=== PATIENT | female | born 1960 | race Caucasian/White ===

== ENCOUNTER 2018-08-10 15:31 | Inpatient (IN) ==
[2018-08-10] MEDS ORDERED: 0.9 % Sodium Chloride 1,000 ML IVC ONE ×2 (17:22→18:16)
[2018-08-10] MEDS ORDERED: Ondansetron 4 MG/2 ML VIAL IVP ONE ×2 (17:22→19:54)
--- NOTE | 2018-08-10 17:24 | Emergency Department Note ---
Disposition Clinical Impression: DKA (diabetic ketoacidoses) Qualifiers: Diabetes mellitus type: type 2 Diabetes mellitus complication detail: without coma Qualified Code(s): E11.10 - Type 2 diabetes mellitus with ketoacidosis without coma Disposition: Admitted As Inpatient Condition: Good Time of Disposition: 18:46 General Adult HPI - General Chief complaint: ED Nausea/Vomiting/Diarrhea Stated complaint: vomiting/diarrhea Time Seen by Provider: 08/10/18 16:52 Source: patient, family Limitations: no limitations Nursing Notes Reviewed: Yes Vital Signs Reviewed: Yes - History of Present Illness HPI Narrative: Patient with 2 days of nausea vomiting. States she ate at a [place] restaurant last night and became very ill afterwards. However there are several people ate the same thing is her with no illnesses. Is complaining of a gross abdominal pain. Has had a history of cholecystectomy. As well as hysterectomy with one ovary left. Patient is from [place] and is on here on vacation. She denies any chest pain or shortness of breath. She does state that she has a hard time catching her were to this time. No neuro deficit s noted. No aphasia noted. States that she feels like this when her glucoses either too high or too low. Is on several different controller medication for her elevated blood sugar. Pain Scale: 7 - Related Data Allergies Allergy/AdvReac Type Severity Reaction Status Date / Time codeine AdvReac Nausea Verified 08/10/18 15:34 All systems ED: reviewed and negative except as stated. Review of Systems: As Per HPI Constitutional: Denies: fever Cardiovascular: Denies: chest pain, syncope Respiratory: Denies: cough, dyspnea Gastrointestinal: Reports: abdominal pain, nausea, vomiting, diarrhea. Denies: hematemesis, melena, hematochezia Past Medical History - Past Medical History Attestation: Yes The following information was validated with the patient. Source: patient Medical history: Reports: diabetes, hypertension, migraine Psychiatric history: Reports: no psych history - Social History Smoking Status: Never smoker Smokeless Tobacco Status: No Alcohol use: Reports: occasionally Drug use: Reports: none Physical Exam - General Limitations: no limitations General appearance: alert, in no apparent distress - Head Head exam: atraumatic, normocephalic, normal inspection - Eye Eye exam: Present: normal appearance, PERRL, EOMI - ENT ENT exam: normal exam, normal oropharynx, mucous membranes moist - Neck Neck exam: Present: normal inspection, full ROM, trachea midline - Chest Chest inspection: Present: normal inspection, symmetric chest wall rise. Absent: tenderness - Respiratory Respiratory exam: Present: normal lung sounds bilaterally. Absent: respiratory distress, accessory muscle use - Cardiovascular Cardiovascular exam: Present: regular rate, normal rhythm, normal heart sounds - Abdominal Exam Abdominal exam: Present: soft, tenderness (Right lower quadrant as well as periumbilical. Some mild tenderness to right upper quadrant as well.). Absent: distention, guarding, rebound, rigidity - Neurological Exam Neurological exam: Present: alert, oriented X3 - Psychiatric Psychiatric exam: Present: normal affect, normal mood - Skin Skin exam: Present: warm, dry, intact, normal color. Absent: cyanosis, diaphoresis Course Course Narrative: Patient with some diffuse abdominal pain on exam. Abdomen is nondistended. She is not guarding. Does have a history of cholecystectomy as well as hysterectomy. She is also diabetic. Is on several different controller medications for her elevated glucose. She states that she does have some burning on urination. Mentating properly. States that she feels little clouded and that she is having trouble getting words out. However she is making sense alert and oriented 3 with no neuro deficits noted. No history of stroke. Lung sounds are clear heart tones are normal. We did get a basic lab workup which initially showed an anion gap of 16. Beta hydroxybutyric acid is also elevated. She is spilling ketones in her urine. We did order IV fluids as well as IV insulin. We will admit patient to the hospital for DKA. She expresses understanding states she has never been in DKA before. - Consultations Consultation #1: Dr Vyas accepted Pt in stable condition. Time: 19:09 Vital Signs Temperature 97.4 F L 08/10/18 15:33 Pulse Rate 113 08/10/18 15:33 Respiratory Rate 16 08/10/18 15:33 Blood Pressure 102/70 08/10/18 15:33 O2 Sat by Pulse Oximetry 97 08/10/18 15:33 Temperature 97.4 F L 08/10/18 15:33 Pulse Rate 104 08/10/18 17:24 Respiratory Rate 16 08/10/18 17:24 Blood Pressure 111/73 08/10/18 17:24 O2 Sat by Pulse Oximetry 97 08/10/18 17:24 Oxygen Delivery Oxygen Delivery Room Air Medical Decision Making - Medical Records Medical records reviewed: Yes I reviewed the patient's medical records. - Lab Data Lab results reviewed: Yes I reviewed the patient's lab results. Result diagrams: 08/10/18 17:00 08/10/18 21:47 Lab Results 08/10/18 08/10/18 08/10/18 Range/Units 17:00 17:00 17:00 WBC 13.9 H (4.3-11.1) K/mcL RBC 6.13 H (3.82-4.97) M/mcL Hgb 17.3 H (11.5-15.4) g/dL Hct 53.0 H (35.3-44.9) % MCV 86.5 (83.0-100.0) fL MCH 28.2 (28.0-33.3) pg MCHC 32.6 (31.6-35.5) g/dL RDW 12.8 (11.5-14.5) % Plt Count 309 (140-400) K/mcL MPV 11.0 (9.4-12.4) fL Immature Gran % 0.4 (0-4) % Seg Neutrophils % 92.0 % Lymphocytes % 2.5 % Monocytes % 4.4 % Eosinophils % 0.3 % Basophils % 0.4 % Neutrophils # 12.8 H (1.6-8.9) K/mcL Lymphocytes # 0.4 L (0.6-4.6) K/mcL Monocytes # 0.6 (0.0-1.3) K/mcL Eosinophils # 0.0 (0.0-0.6) K/mcL Basophils # 0.1 (0.0-0.2) K/mcL VBG pH (7.32-7.42) pH Units VBG pCO2 (41-51) mmHg VBG pO2 (25-50) mmHg VBG HCO3 (21-27) mEq/L Sodium 138 (136-145) mEq/L Potassium 4.0 (3.5-5.1) mEq/L Chloride 99 (98-107) mEq/L Carbon Dioxide 23 (23-29) mEq/L BUN 24 H (6-20) mg/dL Creatinine 1.16 (0.60-1.20) mg/dL Est GFR ( Amer) 58 L (> 60) Est GFR (Non-Af Amer) 48 L (> 60) BUN/Creatinine Ratio 21 (6-26) Glucose 297 H (70-105) mg/dL Calculated Osmolality 301 H (280-300) Calcium 9.2 (8.6-10.3) mg/dL Total Bilirubin 0.7 (0.3-1.0) mg/dL Direct Bilirubin 0.1 (0.0-0.2) mg/dL Indirect Bilirubin 0.6 (0.0-1.2) mg/dL AST 13 (13-39) Units/L ALT 17 (7-52) Units/L Alkaline Phosphatase 61 (34-104) Units/L Serum Total Protein 7.7 (6.4-8.9) g/dL Albumin 4.7 (3.5-5.7) g/dL Globulin 3.0 (2.4-3.5) g/dL Albumin/Globulin Ratio 1.6 (1.1-2.2) Lipase 10 L (11-82) Units/L Beta-Hydroxybutyric Acd > 2.00 H (0.02-0.27) mmol/L Urine Color (Yellow) Urine Clarity (Clear) Urine pH (5.0-8.0) pH Units Ur Specific [place] (1.010-1.025) Urine Protein (Neg-Trace) mg/dL Urine Glucose (UA) (Normal) mg/dL Urine Ketones (Negative) mg/dL Urine Blood (Negative) Urine Nitrite (Negative) Urine Bilirubin (Negative) Urine Urobilinogen (Normal) mg/dL Ur Leukocyte Esterase (Negative) Ur Culture Indicated? (NO) 08/10/18 08/10/18 Range/Units 17:37 18:04 WBC (4.3-11.1) K/mcL RBC (3.82-4.97) M/mcL Hgb (11.5-15.4) g/dL Hct (35.3-44.9) % MCV (83.0-100.0) fL MCH (28.0-33.3) pg MCHC (31.6-35.5) g/dL RDW (11.5-14.5) % Plt Count (140-400) K/mcL MPV (9.4-12.4) fL Immature Gran % (0-4) % Seg Neutrophils % % Lymphocytes % % Monocytes % % Eosinophils % % Basophils % % Neutrophils # (1.6-8.9) K/mcL Lymphocytes # (0.6-4.6) K/mcL Monocytes # (0.0-1.3) K/mcL Eosinophils # (0.0-0.6) K/mcL Basophils # (0.0-0.2) K/mcL VBG pH 7.29 L (7.32-7.42) pH Units VBG pCO2 53 H (41-51) mmHg VBG pO2 26 (25-50) mmHg VBG HCO3 26 (21-27) mEq/L Sodium (136-145) mEq/L Potassium (3.5-5.1) mEq/L Chloride (98-107) mEq/L Carbon Dioxide (23-29) mEq/L BUN (6-20) mg/dL Creatinine (0.60-1.20) mg/dL Est GFR ( Amer) (> 60) Est GFR (Non-Af Amer) (> 60) BUN/Creatinine Ratio (6-26) Glucose (70-105) mg/dL Calculated Osmolality (280-300) Calcium (8.6-10.3) mg/dL Total Bilirubin (0.3-1.0) mg/dL Direct Bilirubin (0.0-0.2) mg/dL Indirect Bilirubin (0.0-1.2) mg/dL AST (13-39) Units/L ALT (7-52) Units/L Alkaline Phosphatase (34-104) Units/L Serum Total Protein (6.4-8.9) g/dL Albumin (3.5-5.7) g/dL Globulin (2.4-3.5) g/dL Albumin/Globulin Ratio (1.1-2.2) Lipase (11-82) Units/L Beta-Hydroxybutyric Acd (0.02-0.27) mmol/L Urine Color Yellow (Yellow) Urine Clarity Clear (Clear) Urine pH 5.5 (5.0-8.0) pH Units Ur Specific [place] > 1.030 H (1.010-1.025) Urine Protein Negative (Neg-Trace) mg/dL Urine Glucose (UA) >=1000 H (Normal) mg/dL Urine Ketones 40 H (Negative) mg/dL Urine Blood Negative (Negative) Urine Nitrite Negative (Negative) Urine Bilirubin Small H (Negative) Urine Urobilinogen Normal (Normal) mg/dL Ur Leukocyte Esterase Negative (Negative) Ur Culture Indicated? NO (NO) - Radiology Data Radiology results reviewed: Yes I reviewed the patient's radiology results. Abdomen/Pelvis CT 08/10/18 17:21 IMPRESSION: No acute inflammatory process in the abdomen or pelvis. A 2.4 cm fluid attenuation right adnexal cyst. Pelvic ultrasound is recommended for further evaluation on a nonemergent basis. D/ /10/2018 18:07:29 Wm Lei MD / flavia Interpreting Provider: Wm Lei MD Attestation Statement - Attestation Attestation: I, Gio Mayers, examined this patient and my medical decision-making was reviewed with the [employer] CYLINDER INSPECTOR/PA/Advanced Practice Nurse/Resident Physician. I agree with the documented findings, disposition and treatment plan as described except to the extent set forth below. 58-year-old female presents emergency Department with concerns of nausea, vomiting, diarrhea. Patient states she ate [place] food last night and then during the night had acute onset of nausea, vomiting, diarrhea. Denies hematochezia, hematemesis, melena. Never had any symptoms like this in the past. Multiple people in that same restaurant without becoming sick. Patient has a history of diabetes, takes trulicity, invokana, and glymeperide. Patient denies missing any of her doses of her medication. She also has not checked her fingerstick blood sugar over the past week that she has been visiting her family. Patient states she feels globally weak but does not have focal neurologic deficit. Patient denies fever. Denies cough, recent trauma. Patient has elevated blood glucose with anion gap of 16 on the BMP. She has elevated beta hydroxybutyric acid. Patient will be treated as DKA and admitted to the hospitalist for further care and evaluation.
[2018-08-10 17:30] LABS: Calcium 9.2 mg/dL (8.6-10.3)
[2018-08-10 17:31] LABS: Basophils # 0.1 K/mcL (0.0-0.2); Basophils % 0.4 %; Eosinophils % 0.3 %; Hemoglobin 17.3 g/dL (11.5-15.4); Immature Granulocytes % 0.4 % (0-4); Lymphocytes # 0.4 K/mcL (0.6-4.6); Lymphocytes % 2.5 %; Mean Corpuscular HGB Conc 32.6 g/dL (31.6-35.5); Mean Corpuscular Hemoglobin 28.2 pg (28.0-33.3); Mean Corpuscular Volume 86.5 fL (83.0-100.0); Monocytes # 0.6 K/mcL (0.0-1.3); Monocytes % 4.4 %; Neutrophils # 12.8 K/mcL (1.6-8.9); Platelet Count 309 K/mcL (140-400); Red Blood Count 6.13 M/mcL (3.82-4.97); Red Cell Distribution Width 12.8 % (11.5-14.5)
[2018-08-10 17:53] LABS: Bilirubin,Urine Small (Negative); Blood,Urine Negative (Negative); Clarity,Urine Clear (Clear); Color,Urine Yellow (Yellow); Glucose,Urine (UA) >=1000 mg/dL (Normal); Ketones,Urine 40 mg/dL (Negative); Leukocyte Esterase,Urine Negative (Negative); Nitrite,Urine Negative (Negative); PH,Urine 5.5 pH Units (5.0-8.0); Protein,Urine Negative (Neg-Trace); Specific Gravity,Urine > 1.030 (1.010-1.025); Urobilinogen,Urine Normal (Normal)
[2018-08-10 18:01] LABS: Albumin 4.7 g/dL (3.5-5.7); Albumin/Globulin Ratio 1.6 (1.1-2.2); Bilirubin,Direct 0.1 mg/dL (0.0-0.2); Bilirubin,Indirect 0.6 mg/dL (0.0-1.2); Bilirubin,Total 0.7 mg/dL (0.3-1.0); Total Protein 7.7 g/dL (6.4-8.9)
[2018-08-10 18:07] LABS: VBG HCO3 26 mEq/L (21-27); VBG PCO2 53 mmHg (41-51); VBG PH 7.29 pH Units (7.32-7.42); VBG PO2 26 mmHg (25-50)
[2018-08-10] MEDS ORDERED: Insulin Human Regular 10 UNIT in 0.9 % Sodium Chloride 10 ML IV ONE (18:15)
[2018-08-10] MEDS ORDERED: Acetaminophen 325 MG TABLET PO PRN (21:36)
[2018-08-10] MEDS ORDERED: D5% in 0.45% NACL w KCl 20 MEQ/1,000 ML MLS IVC PRN (21:36)
[2018-08-10] MEDS ORDERED: Ondansetron 4 MG/2 ML VIAL IVP PRN (21:36)
[2018-08-10] MEDS ORDERED: *HR* Dextrose 50 % in Water (Syg) 50 ML SYRINGE IVP PRN ×2 (21:36→22:42)
[2018-08-10] MEDS ORDERED: Naloxone 0.4 MG/ML INJ IVP PRN (21:36)
[2018-08-10] MEDS ORDERED: Insulin Human Regular 100 UNIT in 0.9 % Sodium Chloride 100 ML IVC SCH (21:45)
[2018-08-10 21:59] LABS: VBG HCO3 22 mEq/L (21-27); VBG PCO2 38 mmHg (41-51); VBG PH 7.36 pH Units (7.32-7.42); VBG PO2 90 mmHg (25-50)
[2018-08-10 22:15] LABS: Magnesium 1.9 mg/dL (1.6-2.6); Phosphorous 2.8 mg/dL (2.7-4.5)
[2018-08-10 22:16] LABS: BUN/Creatinine Ratio 25 (6-26); Blood Urea Nitrogen 21 mg/dL (6-20); Calcium 8.3 mg/dL (8.6-10.3); Carbon Dioxide 21 mEq/L (23-29); Chloride 104 mEq/L (98-107); Glucose 169 mg/dL (70-105); Osmolality,Calculated 291 (280-300); Potassium 3.9 mEq/L (3.5-5.1); Sodium 137 mEq/L (136-145); eGFR For Non-African Americans > 60 (> 60)
[2018-08-10] MEDS ORDERED: D5% in Water 1,000 ML IVC PRN (22:42)
[2018-08-10] MEDS ORDERED: *HR* FentaNYL (PF) 100 MCG/2 ML VIAL IVP PRN (22:42)
[2018-08-10] MEDS ORDERED: Dextrose Gel 15 GM/37.5 ML TUBE PO PRN ×2 (22:42)
[2018-08-10] MEDS ORDERED: Insulin LISPRO 300 UNITS/3 ML VIAL SQ SCH (22:45)
[2018-08-10] MEDS ORDERED: Insulin DETEMIR 100 UNIT/ML X5UNITS SQ SCH (22:45)
--- NOTE | 2018-08-10 22:56 | Internal Med History&Physical ---
Date of Encounter: 08/10/18 Time of Encounter: 21:10 Internal Medicine - H&P: HPI Chief complaint: N/V/D, abdominal pain Admitted From: Emergency Dept Plans for Post Hospital Care: Home History of present illness: Ms. Longoria is a 58 year old female who presents to the ER today with sudden onset abdominal pain, nausea, vomiting, diarrhea, and limited oral intake. Symptoms started about 24 hours ago. She thought symptoms are from "bad" food she ate from local restaurant. However, none of her family members have similar symptoms. They all ate at the same restaurant. She went to a local urgent care and referred to the ER for concerns of diabetic complications. She came to ER where she was found to have evidence of DKA. She received IV fluids and one- time dose of IV insulin. She was then admitted to hospitalist service. Upon my assessment of the patient, patient states she feels better but still has cramping abdominal pain off and on. She still feels dehydrated. She denies any fevers, chills, or night sweats. She denies any cough, chest pain, shortness of breath. I reviewed her labs and noted her anion gap of 16, elevated glucose, and positive ketones. She also had pH of 7.29 on VBG. Unfortunately, she had not had any serial glucose checks since her initial laboratory analysis. I then ordered stat glucose check which was 141. I ordered repeat stat labs which revealed normal anion gap now, normal pH, and improved glucose control. I will therefore keep her on IV fluid hydration, subcutaneous insulin, and monitor closely. It appears that her DKA is resolving now. Nonetheless, she still symptomatic from her GI symptomatology, which may be related to her DKA, GI virus, and/or possible food poisoning. Of note, her medication list is not updated and not available. She takes oral diabetic agents and Trulicity for diabetes control. Past Med Surg Social Fam HX - Past Medical History Attestation: Yes The following information was validated with the patient. Source: patient, other (ER records) Medical history: diabetes, hypertension, migraine Psychiatric history: no psych history - Past Surgical History Surgical History: cholecystectomy, BARTOLO/BSO (unilateral oopherectomy) - Social History Smoking Status: Never smoker Smokeless Tobacco Status: No Alcohol use: occasionally Drug use: none Current living situation: Home, With Family Activity Level: Independent ambulation Recent Out of Country Travel Within the Last 8 Weeks: No Additional social history: lives in [place], [place]; visiting family in [place] presently - Family History Mother Living Status: Still Living Hx Family GI Disorders: No Hx Family Endocrine Disorder: No Internal Medicine - H&P: Meds Allergy/AdvReac Type Severity Reaction Status Date / Time codeine AdvReac Nausea Verified 08/10/18 15:34 - Constitutional Constitutional: no chills, no fever(s), no night sweats - EENT Eyes: no blurry vision, no change in vision Ears: no ear pain, no tinnitus Nose, mouth and throat: no nasal congestion, no sinus pressure, no sore throat - Cardiovascular Cardiovascular ROS IM: no chest pain, no diaphoresis, no dyspnea, no dyspnea on exertion - Respiratory Respiratory: no cough, no chest congestion, no excessive phlegm production, no pain with cough - Gastrointestinal Gastrointestinal: abdominal pain (crampy), cramping, diarrhea, heartburn, nausea, vomiting, no hematemesis, no hematochezia, no loose stools, no melena - Genitourinary Genitourinary: no dysuria, no flank pain, no hematuria - Musculoskeletal Musculoskeletal ROS IM: no arthralgias, no back pain - Integumentary Integumentary IM: no rash, no jaundice - Neurological Neurological ROS: no dizziness, no focal weakness, no frequent falls, no headache(s) - Psychiatric Psychiatric: no anxiety, no depression - Endocrine Endocrine IM: no cold intolerance, no heat intolerance, no polydipsia, no polyuria - Allergic/Immunologic Allergic/Immunologic: GI upset with certain foods, no wheezing - Constitutional Vitals: Temp Pulse Resp BP Pulse Ox 97.4 F L 98 16 113/64 97 08/10/18 15:33 08/10/18 22:20 08/10/18 20:21 08/10/18 22:20 08/10/18 22:20 General appearance: Present: cooperative, mild distress, A&O X 3, pleasant, answers questions appropriately Exam: mildly dehydrated; mild nausea - Head Head exam: Present: atraumatic, normal inspection - Eye Eye exam: Present: EOMI, PERRL. Absent: scleral icterus Pupils: Present: normal accommodation - ENT ENT exam: Present: mucous membranes dry, normal exam, normal oropharynx - Neck Neck exam general surgery: Present: full ROM, supple, trachea midline. Absent: lymphadenopathy, tenderness, nuchal rigidity, thyromegaly - Respiratory Respiratory exam: Present: CTAB. Absent: chest wall tenderness, rales, respiratory distress, rhonchi, wheezes - Cardiovascular Cardiovascular exam: Present: RRR, +S1, +S2. Absent: diastolic murmur, systolic murmur - GI/Abdominal GI/Abdominal exam: Present: normal bowel sounds, tenderness (mild, diffuse, crampy pain), no peritoneal signs. Absent: guarding, hepatomegaly, mass, re bound, splenomegaly - Extremities Exam Extremities exam: Present: full ROM, normal capillary refill, warm, radial pulses palpable and symmetrical. Absent: calf tenderness, joint swelling, pedal edema, tenderness - Back Exam Back exam: Absent: CVA tenderness (L), CVA tenderness (R) - Neurological Exam Neurological exam: Present: alert, CN II-XII intact, oriented X3, no focal defic its, strengths equal and symetr throughout - Psychiatric Psychiatric exam: Present: normal affect, normal mood - Skin Skin exam: Present: dry, intact, warm Internal Med - H&P Results - Labs CBC & Chem 7: 08/10/18 17:00 08/10/18 21:47 Labs: Short CBC 08/10/18 Range/Units 17:00 WBC 13.9 H (4.3-11.1) K/mcL Hgb 17.3 H (11.5-15.4) g/dL Hct 53.0 H (35.3-44.9) % Plt Count 309 (140-400) K/mcL Neutrophils # 12.8 H (1.6-8.9) K/mcL BMP 08/10/18 08/10/18 17:00 21:47 Sodium 138 137 Potassium 4.0 3.9 Chloride 99 104 Carbon Dioxide 23 21 L BUN 24 H 21 H Creatinine 1.16 0.85 Glucose 297 H 169 H Calcium 9.2 8.3 L Liver Function 08/10/18 Range/Units 17:00 Total Bilirubin 0.7 (0.3-1.0) mg/dL Direct Bilirubin 0.1 (0.0-0.2) mg/dL AST 13 (13-39) Units/L ALT 17 (7-52) Units/L Alkaline Phosphatase 61 (34-104) Units/L Albumin 4.7 (3.5-5.7) g/dL Urine 08/10/18 Range/Units 17:37 Urine Color Yellow (Yellow) Urine Clarity Clear (Clear) Urine pH 5.5 (5.0-8.0) pH Units Ur Specific [place] > 1.030 H (1.010-1.025) Urine Protein Negative (Neg-Trace) mg/dL Urine Glucose (UA) >=1000 H (Normal) mg/dL - ABG Interpretation ABG results: 08/10/18 08/10/18 18:04 21:56 VBG pH 7.29 L 7.36 VBG pCO2 53 H 38 L VBG pO2 26 90 H VBG HCO3 26 22 - Impressions ITS Impressions Abdomen/Pelvis CT 08/10/18 17:21 IMPRESSION: No acute inflammatory process in the abdomen or pelvis. A 2.4 cm fluid attenuation right adnexal cyst. Pelvic ultrasound is recommended for further evaluation on a nonemergent basis. D/ : / 08/10/2018 18:07:29 Wm Lei MD / flavia Interpreting Provider: Wm Lei MD - Diagnostic Studies CT scan - abdomen Status: image reviewed by me (negative) - Assessment and Plan (1) DKA (diabetic ketoacidoses) Current Visit: Yes Status: Acute Assessment and plan: 1. Patient received IVF and IV insulin in ER. 2. I ordered STAT labs which revealed a normal anion gap, normal pH. 3. Will continue IVF and start SQ insulin now as DKA resolved. 4. Will monitor glucose and repeat labs. 5. Advance diet as tolerated after clear liquid diet. Qualifiers: Diabetes mellitus type: type 2 Diabetes mellitus complication detail: without coma Qualified Code(s): E11.10 - Type 2 diabetes mellitus with ketoacidosis without coma (2) Abdominal pain Current Visit: Yes Status: Acute Assessment and plan: 1. Non-specific. 2. CT abdomen negative. 3. Monitor clinically and treat symptoms. 4. Exam is benign and does not suggest acute abdomen. Qualifiers: Abdominal location: generalized Qualified Code(s): R10.84 - Generalized abdominal pain (3) DVT prophylaxis Current Visit: Yes Status: Acute Assessment and plan: 1. Heparin SQ.
[2018-08-10] MEDS: 0.9 % Sodium Chloride w KCl 20 MEQ/1,000 ML MLS IVC SCH (23:20)
[2018-08-11] MEDS: *HR* Heparin 5,000 UNIT/ML VIAL SQ SCH ×2 (04:08→05:47)
[2018-08-11] MEDS: 0.9 % Sodium Chloride w KCl 20 MEQ/1,000 ML MLS IVC SCH (04:35)
[2018-08-11] MEDS ORDERED: Pantoprazole 40 MG VIAL IVP SCH (06:00)
[2018-08-11 07:20] LABS: Basophils % 0.3 %; Eosinophils # 0.1 K/mcL (0.0-0.6); Eosinophils % 0.8 %; Hematocrit 39.5 % (35.3-44.9); Immature Granulocytes % 0.3 % (0-4); Lymphocytes # 0.8 K/mcL (0.6-4.6); Mean Corpuscular HGB Conc 33.9 g/dL (31.6-35.5); Mean Corpuscular Hemoglobin 28.5 pg (28.0-33.3); Mean Corpuscular Volume 83.9 fL (83.0-100.0); Mean Platelet Volume 10.3 fL (9.4-12.4); Monocytes # 0.6 K/mcL (0.0-1.3); Monocytes % 8.2 %; Neutrophils # 6.3 K/mcL (1.6-8.9); Platelet Count 205 K/mcL (140-400); Red Blood Count 4.71 M/mcL (3.82-4.97); Segmented Neutrophils % 80.4 %
[2018-08-11] MEDS ORDERED: Insulin LISPRO 300 UNITS/3 ML VIAL SQ SCH (07:30)
[2018-08-11 07:34] LABS: Alanine Aminotransferase 11 Units/L (7-52); Albumin 3.5 g/dL (3.5-5.7); Albumin/Globulin Ratio 1.7 (1.1-2.2); Alkaline Phosphatase 39 Units/L (34-104); Aspartate Amino Transferase 10 Units/L (13-39); BUN/Creatinine Ratio 25 (6-26); Bilirubin,Total 0.5 mg/dL (0.3-1.0); Blood Urea Nitrogen 17 mg/dL (6-20); Calcium 7.7 mg/dL (8.6-10.3); Carbon Dioxide 23 mEq/L (23-29); Chloride 107 mEq/L (98-107); Globulin 2.1 g/dL (2.4-3.5); Glucose 151 mg/dL (70-105); Hemoglobin 13.4 g/dL (11.5-15.4); Osmolality,Calculated 288 (280-300); Potassium 3.9 mEq/L (3.5-5.1); Sodium 137 mEq/L (136-145); Total Protein 5.6 g/dL (6.4-8.9); eGFR For Non-African Americans > 60 (> 60)
[2018-08-11 07:59] VITALS: BP 141/84
--- NOTE | 2018-08-11 08:24 | Discharge Summary ---
<Tamiko Lemon M - Last Filed: 08/11/18 18:34> - NOTES TO OUTPATIENT PROVIDER Notes to Outpatient Provider: follow up on incidental adnexal mass Orders not resulted at time of discharge: Pending orders 08/10/18 21:36 ECG 12 lead ECG [ECG] Routine 08/11/18 07:01 Hgb A1C AM 0400 Date of Encounter: 08/11/18 Time of Encounter: 08:24 - Discharge Diagnosis (1) Hyperglycemia Priority: Primary Status: Acute (2) Gastroenteritis Priority: Secondary Status: Acute (3) Abdominal pain Priority: Secondary Status: Acute Qualifiers: Abdominal location: epigastric Qualified Code(s): R10.13 - Epigastric pain (4) Adnexal mass Priority: Secondary Status: Acute (5) HTN (hypertension) Priority: Secondary Status: Chronic Qualifiers: Hypertension type: essential hypertension Qualified Code(s): I10 - Essential (primary) hypertension Hospital course: Ms. Longoria is a 58 year old female history of DM type 2 non insulin dependent presented to ED on 08-10-18 after two day of vomiting and diarrhea. Onset a few hours after eating at restaurant . She if on vacation and called her PCP in [place] who instructed her to present to ED. On presentation tachycardiac 113 and mild hypotension 102/70 afebrile . Lab work showed hyperglycemia with BG 305 , mild hyperosm 301 and beta hydroxybuteratic above 2. VBG with out acidosis at pH 7.29 and no gap with Na 138 , K4 and CO2 23. UA with high glucose and ketones . CT ABD no acute inflammatory process but incidental findint of 2.4 cm rights adeneal cysts already knwon to patient with follow up for planned oophertectomy. She received 3 L of IVF and insulin drip with quick correction of hyperglycemia to less than 220 with in 4 hrs. Once admitted potassium replaced at 3.9 to keep above 4. H A1C of 8.3. Essential normal CBC with hemoconcention from dehyration resolved on repeat CBC. Her symptoms resolved to weakness and mild headaches similar to her baseline. She was able to tolerate PO with 5 u SSI. Patient wished to leave to make flight back home and was deemed clinically stable. Discharge on day after admission with vitals stable and physical exam normal expect for mild epigastric abdominal tenderness and lower rib strain from retching . She restarted her home medications of glimepiride, invokana and trulicity . Discharge discussed with: patient, nurse - Time Spent with Patient Total time spent providing and/or coordinating discharge services: - Discharge Medications Prescriptions: New Ondansetron ODT [Zofran ODT] 4 mg SL Q4HR PRN #15 tab.rapdis PRN Reason: Nausea And Vomiting Continue RX: Aspirin [Lo-Dose Aspirin EC] 81 mg PO DAILY RX: Estrogen,Alana/Me-Testosterone [Covaryx H.s. Tablet] 1 tab PO DAILY RX: Cholecalciferol (D-3) [Vitamin D] 1,000 unit PO DAILY RX: Dulaglutide [Trulicity] 1.5 mg SQ MO RX: Pitavastatin Calcium [Livalo] 4 mg PO DAILY RX: Lisinopril-HCTZ 20-12.5 [Prinzide 20-12.5] 2 tab PO DAILY RX: Bupropion HCl [Wellbutrin Xl] 300 mg PO DAILY RX: Glimepiride [Amaryl] 2 mg PO DAILY RX: Canagliflozin [Invokana] 300 mg PO DAILY RX: Magnesium l-Lactate [Mag-Tab Sr] 84 mg PO DAILY Home Medications: RX: Aspirin [Lo-Dose Aspirin EC] 81 mg PO DAILY 08/10/18 [History] RX: Bupropion HCl [Wellbutrin Xl] 300 mg PO DAILY 08/10/18 [History] RX: Canagliflozin [Invokana] 300 mg PO DAILY 08/10/18 [History] RX: Cholecalciferol (D-3) [Vitamin D] 1,000 unit PO DAILY 08/10/18 [History] RX: Dulaglutide [Trulicity] 1.5 mg SQ MO 08/10/18 [History] RX: Estrogen,Alana/Me-Testosterone [Covaryx H.s. Tablet] 1 tab PO DAILY 08/10/18 [History] RX: Glimepiride [Amaryl] 2 mg PO DAILY 08/10/18 [History] RX: Lisinopril-HCTZ 20-12.5 [Prinzide 20-12.5] 2 tab PO DAILY 08/10/18 [History] RX: Magnesium l-Lactate [Mag-Tab Sr] 84 mg PO DAILY 08/10/18 [History] RX: Pitavastatin Calcium [Livalo] 4 mg PO DAILY 08/10/18 [History] Ondansetron ODT [Zofran ODT] 4 mg SL Q4HR PRN #15 tab.kadeemdis 08/11/18 [Rx] Allergies/Adverse Reactions: Allergy/AdvReac Type Severity Reaction Status Date / Time codeine AdvReac Nausea Verified 08/10/18 15:34 Date of admission: 08/10/18 23:02 Primary care physician: PCP NONE Discharging clinician: Tamiko Lemon Anticipated date of discharge: 08/11/18 - Constitutional Vitals: Temp Pulse Resp BP Pulse Ox 98.7 F 86 16 141/84 97 08/11/18 07:56 08/11/18 07:56 08/11/18 07:56 08/11/18 07:56 08/11/18 07:56 General appearance: Present: cooperative, mild distress, A&O X 3, pleasant, answers questions appropriately Exam: patient laying in bed requesting top leave - Head Head exam: Present: atraumatic, normal inspection, normocephalic - Eye Eye exam: Present: EOMI, PERRL - ENT ENT exam: Present: mucous membranes moist, normal external ear exam, normal oropharynx - Respiratory Respiratory exam: Present: CTAB. Absent: respiratory distress, wheezes - Cardiovascular Cardiovascular exam: Present: RRR. Absent: diastolic murmur, systolic murmur - GI/Abdominal GI/Abdominal exam: Present: normal bowel sounds, soft, tenderness (mild epigastric). Absent: guarding, rebound - Extremities Exam Extremities exam: Present: full ROM, radial pulses palpable and symmetrical. Absent: pedal edema, tenderness - Back Exam Back exam: Present: full ROM. Absent: rash noted, tenderness - Neurological Exam Neurological exam: Present: alert, CN II-XII intact, oriented X3, no focal deficits. Absent: facial droop, speech deficit - Psychiatric Psychiatric exam: Present: normal affect, normal mood - Skin Skin exam: Present: dry, normal color, warm. Absent: rash - Patient Status Disposition: Home, Self-Care Condition: Good Overall status at discharge: patient is progressing back to baseline - Discharge Instructions Follow Up With: NONE,PCP [Primary Care Provider] - - Diet and Activity Activity: increase activity as tolerated Diet: advance to your usual diet, diabetic diet <Alhajjar,Osama M - Last Filed: 08/12/18 10:16> Orders not resulted at time of discharge: Pending orders 08/10/18 21:36 ECG 12 lead ECG [ECG] Routine Date of Encounter: 08/12/18 - Discharge Diagnosis (1) DKA (diabetic ketoacidoses) Status: Acute Qualifiers: Diabetes mellitus type: type 2 Diabetes mellitus complication detail: wit hout coma Qualified Code(s): E11.10 - Type 2 diabetes mellitus with ketoacidosis without coma (2) DVT prophylaxis Status: Acute (3) Abdominal pain Status: Acute Qualifiers: Abdominal location: epigastric Qualified Code(s): R10.13 - Epigastric pain Hospital course: Ms. Longoria is a 58 year old female - Time Spent with Patient Total time spent providing and/or coordinating discharge services: Time spent: Greater than 30 minutes Date of admission: 08/10/18 23:02 Primary care physician: PCP NONE - Constitutional Vitals: Temp Pulse Resp BP Pulse Ox 98.7 F 86 16 141/84 97 08/11/18 07:56 08/11/18 07:56 08/11/18 07:56 08/11/18 07:56 08/11/18 07:56 - Attending Attestation Patient was seen and examined. I agree with the discharge document as written by the resident physician. Encounter was on 08/11/2018 Patient admitted with suspected DKA. Had bicarb of around 20 and never <18. Had episodes of vomiting after eating at a restaurant. Labs were not consistent with DKA to me. Possible viral gastroenteritis vs food poisoning. Had a CT abd/pelvis come back unremarkable. Glucose were in 200s initially but trended down to 100s. CT showed right adnexal cyst of 2.4 cm and she is aware of that. She lives in [place] and will follow up on that. She was aware of it from [place] either way and they are planning oopherectomy there. Labs normalized and was discharged with no new scripts on 08/11/2018. GEN: NAD CVS: RRR. S1, S2, No m/r/g RESP: CTAB ABD: Soft, NT, ND, +BS EXT: No edema. 2+ DP. No rashes NEURO: Nonfoca 35 minutes was spent on the coordination of this discharge with the patient, nursing staff, and care coordinators.
[2018-08-11 13:48] LABS: Estimated Average Glucose 203 mg/dl; Hemoglobin A1C 8.7 %
== END 2018-08-11 11:00 | disposition home or self-care (01) | DRG 639 ==
LOC: EMEROOARM 15:31 → 2NNU 23:02
PROVIDERS: ADMIT Internal Medicine Nephrology; ATTEND Internal Medicine Nephrology